=== PATIENT | male | born 1950 | race Hispanic/Latino ===

== ENCOUNTER → 2017-11-09 | Outpatient (CLI) | payer OTHER, MEDICARE | END | disposition home or self-care (01) | LOC: RAH 07:15 | PROVIDERS: ATTEND Internal Medicine Gastroenterology | DX: K74.60 Unspecified cirrhosis of liver (principal); B18.2 Chronic viral hepatitis C | CPT/HCPCS: 76700; 93975 ==

== ENCOUNTER → 2018-07-04 | Outpatient (CLI) | payer MEDICARE, OTHER | END | disposition home or self-care (01) | LOC: RAH 07:45 | PROVIDERS: ATTEND Internal Medicine Gastroenterology | DX: K76.89 Other specified diseases of liver (principal) | CPT/HCPCS: 76700; 93975 ==

== ENCOUNTER → 2019-11-12 | Outpatient (CLI) | payer OTHER | END | disposition home or self-care (01) | LOC: RAH 10:44 | PROVIDERS: ATTEND Internal Medicine | DX: M17.12 Unilateral primary osteoarthritis, left knee (principal) | CPT/HCPCS: 73562 ==

== ENCOUNTER 2021-01-27 07:16 | Emergency (ER) | payer OTHER, MEDICARE | END 2021-01-27 07:31 | disposition home or self-care (01) | LOC: EDH 07:16 | DX: S41.132A Puncture wound without foreign body of left upper arm, initial encounter (principal); W46.0XXA Contact with hypodermic needle, initial encounter; Y93.89 Activity, other specified; Y92.89 Other specified places as the place of occurrence of the external cause; Y99.8 Other external cause status | CPT/HCPCS: 99281 ==

== ENCOUNTER → 2021-03-26 | Outpatient (CLI) | payer OTHER, MEDICARE | END | disposition home or self-care (01) | LOC: RAH 09:55 | PROVIDERS: ATTEND Internal Medicine Gastroenterology | DX: R14.0 Abdominal distension (gaseous) (principal); K30 Functional dyspepsia; K21.9 Gastro-esophageal reflux disease without esophagitis; B19.20 Unspecified viral hepatitis C without hepatic coma | CPT/HCPCS: 78264; A9541 ==

== ENCOUNTER → 2021-09-21 | Outpatient (CLI) | payer OTHER, MEDICARE | END | disposition home or self-care (01) | LOC: RAH 09:38 | PROVIDERS: ATTEND Internal Medicine | DX: M47.812 Spondylosis without myelopathy or radiculopathy, cervical region (principal); M50.30 Other cervical disc degeneration, unspecified cervical region; M19.012 Primary osteoarthritis, left shoulder | CPT/HCPCS: 72040; 73030 ==

== ENCOUNTER 2021-10-05 22:58 | Emergency (ER) | payer OTHER, MEDICARE ==
[~2021-10-05] VITALS: Ht 162.6 cm; Wt 70.8 kg
[2021-10-05] MEDS ORDERED: DICYCLOMINE HCL 10 MG/5 ML ML PO ONE ×2 (23:27→23:30)
[2021-10-05] MEDS ORDERED: MAG/ALUM/SIMETH 30 ML UDCUP ONE (23:27)
[2021-10-05] MEDS ORDERED: LIDOCAINE HCL 2% VISCOUS 15 ML UDCUP ONE (23:27)
[2021-10-05] MEDS ORDERED: LIDOCAINE HCL 2% VISCOUS 15 ML UDCUP PO ONE (23:30)
[2021-10-05] MEDS ORDERED: ONDANSETRON 4MG TABLET PO ONE (23:30)
[2021-10-05] MEDS ORDERED: MAG/ALUM/SIMETH 30 ML UDCUP PO ONE (23:30)
[2021-10-05 23:43] LABS: BASOPHILS % (AUTO) 0.5 % (0.0-5.0); EOSINOPHILS % (AUTO) 0.6 % (0.0-8.0); HEMATOCRIT 45.4 % (42-54); LYMPHOCYTES % (AUTO) 29.9 % (21.0-51.0); MEAN CORPUSCULAR HEMOGLOBIN 30.8 pg (27.0-33.0); MEAN CORPUSCULAR HGB CONC 35.2 g/dL (32.0-36.0); MEAN CORPUSCULAR VOLUME 87.5 fL (79-99); MONOCYTES % (AUTO) 6.8 % (3.0-13.0); NEUTROPHILS % (AUTO) 61.8 % (40.0-77.0); PLATELET COUNT (AUTO) 240 K/uL (130-400); RED BLOOD CELL COUNT(AUTO) 5.19 MIL/uL (4.50-6.20); WHITE BLOOD COUNT (AUTO) 10.8 K/uL (4.8-10.8)
[2021-10-05 23:52] LABS: CARBON DIOXIDE 30 mmol/L (21-32); CHLORIDE 104 mmol/L (101-111); CREATININE 1.1 mg/dL (0.5-1.5); GLOMERULAR FILTR. RATE CALC 70 mL/min (>60); GLUCOSE,RANDOM 152 mg/dL (70-105); POTASSIUM 3.8 mmol/L (3.5-5.1); SODIUM SERUM 142 mmol/L (136-145); UREA NITROGEN, BLOOD 17 mg/dL (7-18)
[2021-10-05 23:56] LABS: ALANINE AMINOTRANSFERASE 22 U/L (12-78); ALBUMIN 3.9 g/dL (3.5-5.0); ASPARTATE AMINOTRANSFERASE 13 U/L (10-37); BILIRUBIN,TOTAL 0.3 mg/dL (0.2-1.0); TOTAL PROTEIN, SERUM 7.9 g/dL (6.0-8.3)
[2021-10-06 00:03] LABS: LIPASE < 50 U/L (114-286)
[2021-10-06] MEDS ORDERED: FAMOTIDINE 20MG TAB PO ONE (00:30)
[2021-10-06] MEDS ORDERED: MAG-37 PO (00:31)
[2021-10-06 00:36] VITALS: BP 132/82
== END 2021-10-06 00:44 | disposition home or self-care (01) ==
LOC: EDH 22:58
DX: K29.70 Gastritis, unspecified, without bleeding (principal); I10 Essential (primary) hypertension; F03.90 Unspecified dementia, unspecified severity, without behavioral disturbance, psychotic disturbance, mood disturbance, and anxiety; K21.9 Gastro-esophageal reflux disease without esophagitis; Z88.6 Allergy status to analgesic agent; Z79.899 Other long term (current) drug therapy
CPT/HCPCS: 36415; 80053; 83690; 84484; 85025; 93005; 99284; Q0162

== ENCOUNTER → 2022-03-29 | Outpatient (CLI) | payer OTHER, MEDICARE ==
[~2022-03-29] MED LIST: MAG-37 PO
== END | disposition home or self-care (01) ==
LOC: RAH 12:13
PROVIDERS: ATTEND Internal Medicine
DX: M25.512 Pain in left shoulder (principal)
CPT/HCPCS: 73030

== ENCOUNTER → 2022-06-15 | Outpatient (CLI) | payer OTHER, MEDICARE | END | disposition home or self-care (01) | LOC: RAH 10:10 | PROVIDERS: ATTEND Internal Medicine | DX: R13.10 Dysphagia, unspecified (principal); R63.30 Feeding difficulties, unspecified | CPT/HCPCS: 74230; 92611 ==

== ENCOUNTER → 2023-01-28 | Outpatient (CLI) | payer OTHER, MEDICARE | END | disposition home or self-care (01) | LOC: RAH 13:00 | PROVIDERS: ATTEND Internal Medicine | DX: G45.9 Transient cerebral ischemic attack, unspecified (principal) | CPT/HCPCS: 70450 ==

== ENCOUNTER → 2023-01-31 | Outpatient (CLI) | payer OTHER, MEDICARE | END | disposition home or self-care (01) | LOC: RAH 13:02 | PROVIDERS: ATTEND Internal Medicine | DX: I08.0 Rheumatic disorders of both mitral and aortic valves (principal); G45.9 Transient cerebral ischemic attack, unspecified | CPT/HCPCS: 93306; 93880 ==

== ENCOUNTER → 2023-11-03 | Outpatient (CLI) | payer OTHER, MEDICARE ==
[~2023-11-03] MED LIST changes: +AEC81 PO; +ATOR40TA71 PO; +CLOP-31 PO; +CYAN1000I IM; +DONE10TA43 PO; +HYDR-3421 PO; +LEVO750T68 PO; +LISI2.5T13 PO; -MAG-37 PO; +PANT40TA54 PO; +SILO8CAP6 PO; +VIBE75TA PO
== END | disposition home or self-care (01) ==
LOC: RAH 13:05
PROVIDERS: ATTEND Internal Medicine
DX: I69.354 Hemiplegia and hemiparesis following cerebral infarction affecting left non-dominant side (principal); R13.10 Dysphagia, unspecified; R68.2 Dry mouth, unspecified
CPT/HCPCS: 74230; 92611

== ENCOUNTER 2023-11-24 18:23 | Observation (INO) | payer OTHER, MEDICARE ==
[~2023-11-24] VITALS: Ht 165.1 cm; Wt 71.8 kg
[2023-11-24 22:25] VITALS: O2SAT 98
[2023-11-24 22:30] VITALS: BP 163/70; PULSE 63; RESP 20
[2023-11-24] MEDS ORDERED: ACETAMINOPHEN 325 MG TAB PO PRN ×2 (22:30)
[2023-11-24] MEDS ORDERED: ONDANSETRON 4MG INJ IV PRN (22:30)
[2023-11-24] MEDS ORDERED: MORPHINE 4 MG SYG IV PRN (22:30)
[2023-11-24] MEDS ORDERED: MORPHINE 2 MG SYG IV PRN (22:30)
[2023-11-24] MEDS ORDERED: TRAZ-185 PO (23:04)
[2023-11-24] MEDS ORDERED: CHOL10CA2 PO (23:04)
[2023-11-24] MEDS ORDERED: LISI10TA24 PO (23:04)
[2023-11-24 23:14] LABS: BASOPHILS # (AUTO) 0.05 K/uL (0.00-0.20); BASOPHILS % (AUTO) 0.6 % (0.0-5.0); EOSINOPHILS # (AUTO) 0.32 K/uL (0.00-0.70); EOSINOPHILS % (AUTO) 3.9 % (0.0-8.0); HEMATOCRIT 42.1 % (42-54); IMMATURE GRANULOCYTE ABSOLUTE 0.02 K/uL (0-1); LYMPHOCYTES # (AUTO) 3.1 K/uL (1.0-4.8); LYMPHOCYTES % (AUTO) 36.8 % (21.0-51.0); MEAN CORPUSCULAR HEMOGLOBIN 30.2 pg (27.0-33.0); MEAN CORPUSCULAR HGB CONC 34.9 g/dL (32.0-36.0); MEAN CORPUSCULAR VOLUME 86.6 fL (79-99); MONOCYTES # (AUTO) 0.8 K/uL (0.1-1.0); NEUTROPHILS # (AUTO) 4.1 K/uL (1.8-7.7); NEUTROPHILS % (AUTO) 49.5 % (40.0-77.0); PLATELET COUNT (AUTO) 221 K/uL (130-400); RED BLOOD CELL COUNT(AUTO) 4.86 MIL/uL (4.50-6.20); WHITE BLOOD COUNT (AUTO) 8.3 K/uL (4.8-10.8)
[2023-11-24 23:27] LABS: CREATININE 0.9 mg/dL (0.5-1.5); INR 0.94 (0.85-1.15); PROTHROMBIN TIME 10.9 SEC (9.6-11.6)
[2023-11-24 23:28] LABS: PARTIAL THROMBOPLASTIN TIME 27.3 SEC (26.3-35.5)
[2023-11-24 23:39] LABS: ALBUMIN 3.8 g/dL (3.5-5.0); BILIRUBIN,TOTAL 0.3 mg/dL (0.2-1.0); MAGNESIUM 2.2 mg/dL (1.80-2.40); PHOSPHORUS 4.2 mg/dL (2.5-4.9); THYROID STIMULATING HORMONE 1.93 uIU/mL (0.36-3.74); TOTAL PROTEIN, SERUM 7.6 g/dL (6.0-8.3)
[2023-11-24 23:55] LABS: B-TYPE NATRIURETIC PEPTIDE 42 pg/mL (0-100)
[2023-11-25] VITALS (12 sets, daily range): BP systolic 93–187; BP diastolic 50–94; PULSE 57–85; RESP 18–20; O2SAT 98
[2023-11-25] MEDS ORDERED: POTASSIUM CHLORIDE 20MEQ/100ML 100 ML IV PRN
[2023-11-25] MEDS ORDERED: MAGNESIUM 2GM PREMIX 50ML 50 ML IV PRN
[2023-11-25] MEDS: LACTATED RINGERS 1000ML 1,000 ML IV SCH (00:13)
[2023-11-25 05:01] LABS: BASOPHILS # (AUTO) 0.04 K/uL (0.00-0.20); BASOPHILS % (AUTO) 0.5 % (0.0-5.0); EOSINOPHILS % (AUTO) 3.9 % (0.0-8.0); HEMATOCRIT 40.2 % (42-54); IMMATURE GRANULOCYTE ABSOLUTE 0.02 K/uL (0-1); LYMPHOCYTES # (AUTO) 2.6 K/uL (1.0-4.8); LYMPHOCYTES % (AUTO) 33.2 % (21.0-51.0); MEAN CORPUSCULAR HEMOGLOBIN 30.1 pg (27.0-33.0); MEAN CORPUSCULAR HGB CONC 34.6 g/dL (32.0-36.0); MONOCYTES # (AUTO) 0.7 K/uL (0.1-1.0); MONOCYTES % (AUTO) 9.4 % (3.0-13.0); NEUTROPHILS # (AUTO) 4.1 K/uL (1.8-7.7); NEUTROPHILS % (AUTO) 52.7 % (40.0-77.0); PLATELET COUNT (AUTO) 208 K/uL (130-400); RED BLOOD CELL COUNT(AUTO) 4.62 MIL/uL (4.50-6.20); RED CELL DISTRIBUTION WIDTH 13.7 % (11.0-15.5); WHITE BLOOD COUNT (AUTO) 7.7 K/uL (4.8-10.8)
[2023-11-25 05:16] LABS: CREATININE 0.9 mg/dL (0.5-1.5); POTASSIUM 4.2 mmol/L (3.5-5.1)
[2023-11-25] MEDS: FAMOTIDINE 20MG VIAL IV SCH (08:54)
[2023-11-25] MEDS: FENTANYL CITRATE PF 50 MCG/1 ML 2ML VIAL IVP ONE (08:55)
[2023-11-25] MEDS: LIDOCAINE HCL 2% VISCOUS 15 ML UDCUP PO ONE (08:55)
[2023-11-25] MEDS: MIDAZOLAM HCL 1 MG/ML 2ML VIAL IVP ONE (08:55)
[2023-11-25] MEDS ORDERED: APIX5TAB PO (09:36)
[2023-11-28 08:10] LABS: DRVVT-LUPUS ANTICOAGULANT 38.2 sec (0.0-47.0)
== END 2023-11-25 13:10 | disposition home or self-care (01) ==
LOC: EDH 18:23 → 4CH 18:24 → INTOOBSV 18:24
PROVIDERS: ADMIT Internal Medicine; ATTEND Internal Medicine
DX: R20.2 Paresthesia of skin (principal); R26.9 Unspecified abnormalities of gait and mobility; K74.60 Unspecified cirrhosis of liver; R41.3 Other amnesia; I10 Essential (primary) hypertension; G81.91 Hemiplegia, unspecified affecting right dominant side; G81.94 Hemiplegia, unspecified affecting left nondominant side; G47.33 Obstructive sleep apnea (adult) (pediatric); E78.5 Hyperlipidemia, unspecified; E55.9 Vitamin D deficiency, unspecified; F41.9 Anxiety disorder, unspecified; I35.8 Other nonrheumatic aortic valve disorders; Z51.5 Encounter for palliative care; Z79.01 Long term (current) use of anticoagulants; Z79.02 Long term (current) use of antithrombotics/antiplatelets; Z79.82 Long term (current) use of aspirin; Z79.899 Other long term (current) drug therapy
CPT/HCPCS: 71045; 84443; 83735; 84100; 84484; 80053; 83880; 82140; 85025 ×2; 85610; 85730; 86850; 86900; 86901; 87040 ×2; 83605; 36415 ×2; 93312; 96361; 96374; 97161; 97116; 80048; 86160 ×2; 86038; 86235; 86147 ×2; 85732; 86215; 86146; G0378; J3490; J3010; J2250; A4216

== ENCOUNTER → 2023-12-12 | Outpatient (CLI) | payer OTHER, MEDICARE ==
[~2023-12-12] MED LIST changes: -AEC81 PO; +APIX5TAB PO; +CHOL10CA2 PO; -CLOP-31 PO; -LEVO750T68 PO; +LISI10TA24 PO; -LISI2.5T13 PO; +TRAZ-185 PO; -VIBE75TA PO
== END | disposition home or self-care (01) ==
LOC: LAB 13:46
PROVIDERS: ATTEND Internal Medicine Gastroenterology
DX: R93.2 Abnormal findings on diagnostic imaging of liver and biliary tract (principal)
CPT/HCPCS: 36415; 82565; 84520

== ENCOUNTER → 2023-12-14 | Outpatient (CLI) | payer OTHER, MEDICARE ==
[~2023-12-14] MED LIST changes: +IOHEXOL 350 MG/ML 100ML INFUS..BTL IV ONE
== END | disposition home or self-care (01) ==
LOC: RAH 07:54
PROVIDERS: ATTEND Internal Medicine Gastroenterology
DX: I25.10 Atherosclerotic heart disease of native coronary artery without angina pectoris (principal); R93.2 Abnormal findings on diagnostic imaging of liver and biliary tract; M47.815 Spondylosis without myelopathy or radiculopathy, thoracolumbar region; I70.90 Unspecified atherosclerosis
CPT/HCPCS: 74178; Q9967

== ENCOUNTER 2023-12-28 15:34 | Emergency (ER) | payer OTHER, MEDICARE ==
[~2023-12-28] VITALS: Ht 167.6 cm; Wt 73.0 kg
[~2023-12-28 15:34] MED LIST changes: -CHOL10CA2 PO; +CHOL400C5 PO; -IOHEXOL 350 MG/ML 100ML INFUS..BTL IV ONE
[2023-12-28 16:23] LABS: BASOPHILS # (AUTO) 0.04 K/uL (0.00-0.20); BASOPHILS % (AUTO) 0.4 % (0.0-5.0); EOSINOPHILS % (AUTO) 3.4 % (0.0-8.0); HEMATOCRIT 45.3 % (42-54); IMMATURE GRANULOCYTE ABSOLUTE 0.03 K/uL (0-1); LYMPHOCYTES % (AUTO) 33.1 % (21.0-51.0); MEAN CORPUSCULAR HEMOGLOBIN 30.2 pg (27.0-33.0); MEAN CORPUSCULAR HGB CONC 34.2 g/dL (32.0-36.0); MEAN CORPUSCULAR VOLUME 88.3 fL (79-99); MONOCYTES # (AUTO) 0.8 K/uL (0.1-1.0); MONOCYTES % (AUTO) 8.8 % (3.0-13.0); NEUTROPHILS # (AUTO) 4.8 K/uL (1.8-7.7); PLATELET COUNT (AUTO) 236 K/uL (130-400); RED BLOOD CELL COUNT(AUTO) 5.13 MIL/uL (4.50-6.20); WHITE BLOOD COUNT (AUTO) 8.9 K/uL (4.8-10.8)
[2023-12-28 16:27] LABS: APPEARANCE,URINE CLEAR (CLEAR); BILIRUBIN,URINE NEGATIVE (NEGATIVE); COLOR,URINE LIGHT-YELLOW (YELLOW); GLUCOSE, URINE (UA) NEGATIVE (NEGATIVE); KETONES,URINE NEGATIVE (NEGATIVE); LEUKOCYTE ESTERASE ,URINE NEGATIVE Leu/uL (NEGATIVE); NITRATE,URINE NEGATIVE (NEGATIVE); OCCULT BLOOD,URINE NEGATIVE (NEGATIVE); PH,URINE 5.5 (5.0-8.0); PROTEIN,URINE NEGATIVE (NEGATIVE); UROBILINOGEN,URINE 0.2 mg/dL (0.2-1.0)
[2023-12-28 16:32] LABS: ADD UA MICROSCOPIC NO
[2023-12-28 16:39] LABS: INR 0.94 (0.85-1.15); PROTHROMBIN TIME 11.1 SEC (9.6-11.6)
[2023-12-28 16:40] LABS: RAPID GROUP A STREP negative (NEGATIVE)
[2023-12-28 16:40] LABS: PARTIAL THROMBOPLASTIN TIME 28.6 SEC (26.3-35.5)
[2023-12-28 16:42] LABS: ALBUMIN 3.9 g/dL (3.5-5.0); BILIRUBIN,TOTAL 0.5 mg/dL (0.2-1.0); POTASSIUM 4.2 mmol/L (3.5-5.1); TOTAL PROTEIN, SERUM 8.1 g/dL (6.0-8.3)
[2023-12-28 16:47] LABS: B-TYPE NATRIURETIC PEPTIDE 30 pg/mL (0-100)
[2023-12-28 16:48] LABS: SARS-CoV-2, RNA, NAAT NEGATIVE SARS CoV-2 (NEGATIVE)
[2023-12-28 16:55] LABS: INFLUENZA TYPE A Negative For Type A (NEGATIVE); INFLUENZA TYPE B Negative For Type B (NEGATIVE)
[2023-12-28 19:12] VITALS: BP 98/51; PULSE 18; RESP 18; O2SAT 99
== END 2023-12-28 19:28 | disposition home or self-care (01) ==
LOC: EDH 15:34
DX: R06.00 Dyspnea, unspecified (principal); R07.89 Other chest pain; E78.00 Pure hypercholesterolemia, unspecified; I25.10 Atherosclerotic heart disease of native coronary artery without angina pectoris; K21.9 Gastro-esophageal reflux disease without esophagitis; Z79.01 Long term (current) use of anticoagulants; Z79.899 Other long term (current) drug therapy; Z86.73 Personal history of transient ischemic attack (TIA), and cerebral infarction without residual deficits; Z88.6 Allergy status to analgesic agent; Z20.822 Contact with and (suspected) exposure to COVID-19
CPT/HCPCS: 36415; 71045; 80053; 81003; 82550; 83880; 84484; 85025; 85610; 85730; 87635; 87804; 87880; 93005

== ENCOUNTER 2024-05-06 07:44 | Emergency (ER) | payer OTHER, MEDICARE ==
[~2024-05-06] VITALS: Ht 165.1 cm; Wt 75.7 kg
[~2024-05-06 07:44] MED LIST changes: +CHOL10CA2 PO; -CHOL400C5 PO; -SILO8CAP6 PO; +SILO8CAP8 PO
[2024-05-06 08:57] LABS: INFLUENZA TYPE A Negative For Type A (NEGATIVE); INFLUENZA TYPE B Negative For Type B (NEGATIVE)
[2024-05-06 09:08] LABS: SARS-CoV-2, RNA, NAAT POSITIVE SARS CoV-2 (NEGATIVE)
[2024-05-06 09:35] VITALS: BP 156/90; PULSE 80; RESP 16; O2SAT 98
[2024-05-06] MEDS ORDERED: ONDA-243 PO (09:36)
[2024-05-06] MEDS ORDERED: AZIT250T9 PO (09:36)
[2024-05-06] MEDS ORDERED: BENZ-39 PO (09:36)
== END 2024-05-06 09:36 | disposition home or self-care (01) ==
LOC: EDH 07:44
DX: U07.1 COVID-19 (principal); I10 Essential (primary) hypertension; E78.00 Pure hypercholesterolemia, unspecified; K21.9 Gastro-esophageal reflux disease without esophagitis; Z79.899 Other long term (current) drug therapy; Z98.890 Other specified postprocedural states
CPT/HCPCS: 87635; 87804

== ENCOUNTER → 2024-07-19 | Outpatient (CLI) | payer OTHER, MEDICARE ==
[~2024-07-19] MED LIST changes: +AZIT250T9 PO; +BENZ-39 PO; +ONDA-243 PO; +metoPROLOL tartRATE 1 MG/ML 5ML VIAL IV ONE
== END | disposition home or self-care (01) ==
LOC: RAH 09:57
PROVIDERS: ATTEND Internal Medicine Cardiovascular Disease
DX: R06.00 Dyspnea, unspecified (principal)
CPT/HCPCS: 75574; J3490

== ENCOUNTER → 2025-04-18 | Outpatient (CLI) | payer OTHER, MEDICARE ==
[~2025-04-18] MED LIST changes: -metoPROLOL tartRATE 1 MG/ML 5ML VIAL IV ONE
--- NOTE | 2025-04-19 05:56 | HMCIMG ---
EXAM: CR Right Foot, 2 views. CLINICAL HISTORY: Corns. COMPARISON: None provided. FINDINGS: No acute fracture or aggressive appearing osseous lesion. Mild osteopenia. Mild osteoarthritis. Atherosclerotic vascular calcifications. IMPRESSION: No acute bony abnormality. Mild osteopenia. Mild osteoarthritis. /[place]
== END | disposition home or self-care (01) ==
LOC: RAH 09:50
PROVIDERS: ATTEND Nurse Practitioner Family
DX: M19.071 Primary osteoarthritis, right ankle and foot (principal); L08.9 Local infection of the skin and subcutaneous tissue, unspecified; M79.671 Pain in right foot; L84 Corns and callosities; M85.88 Other specified disorders of bone density and structure, other site; I70.90 Unspecified atherosclerosis
CPT/HCPCS: 73620